=== PATIENT | female | born 1945 | race Caucasian/White ===

== ENCOUNTER 2017-01-07 20:03 | Inpatient (IN) | payer OTHER, MEDICAID ==
--- NOTE | 2017-01-07 21:05 | DR.GENAD ---
HPI - PCP Primary Care Physician: Yasmin - Complaint/Symptoms Chief Complaint Doctors Comments: Patient is being seen tonight because daughter states that mon has been sleeping most of the day. She saw her pcp today who said that she was very dehydrated. Daughter states that mom is seeing things that are not there. She was taken off her Ritalin a few days ago and can not stay awake. She denies a history of dementia. PMHx BP,cholesterol, anxiety and narcolepsy. She denies vomitng or diarrhea. Had fever today. Chief Complaint:: Daughter stated that "she carrried her to Dr. Hoffman 01/06/[address] said she was really drehydrated and her kidney function wasnt good. 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 Surgery, Ortho Surgery - Family History History of Family Medical Conditions: Yes Family Medical History: Cancer, [place] - Social History Do you use any recreational Drugs:: No - infectious screening Have you traveled outside the country in the last 6 months?: No ROS - Review of Systems Constitutional: No Symptoms Reported Eyes: No Symptoms Reported ENTM: No Symptoms Reported Respiratoy: No Symptoms Reported Cardiovascular: No Symptoms Reported Gastrointestinal/Abdominal: No Symptoms Reported Genitourinary: No Symptoms Reported Neurological: No Symptoms Reported Musculoskeletal: No Symptoms Reported Integumentary: No Symptoms Reported Hematologic/Lymphatic: No Symptoms Reported Endocrine: No Symptoms Reported Psychiatric: No Symptoms Reported All Other Systems: Reviewed and Negative PE - Vital Signs Vitals: Temperature 102.5 F Pulse Rate 74 Respiratory Rate 18 Blood Pressure [Right Arm] 144/64 Blood Pressure [Left Arm] 151/67 Blood Pressure 98/51 O2 Sat by Pulse Oximetry 97 - General Limitations: No Limitations General Appearance: Alert - Head Head Exam: Normal Inspection, Atraumatic - Eyes Eye exam: Normal Appearance, PERRL, EOMI - ENT ENT Exam: Normal Exam External Ear Exam: Normal External Inspection TM/Canal Exam: Bilateral Normal Nose Exam: Normal Nose Exam Mouth Exam: Normal Inspection Throat Exam: Normal Inspection - Neck Neck Exam: Normal Inspection, Full ROM - Chest Chest Inspection: Normal Inspection, Symmetric Chest Wall Rise - Respiratory Respiratory Exam: Normal Lung Sounds Bilat Respiratory Exam: Bilateral Clear to Auscultation - Cardiovascular Cardiovascular Exam: Regular Rate, Normal Rhythm - Abdominal Exam Abdominal Exam: Normal Inspection, Normal Bowel Sounds Abdominal Tenderness: negative: RUQ, RLQ, LUQ, LLQ, Epigastrium, Suprapubic, Diffuse, Mild, Moderate, Severe, Other - Extremities Extremities Exam: Normal Inspection - Back Back Exam: Normal Inspection - Neurologic Neurological Exam: Alert, Oriented X3, CN II-XII Intact - Skin Skin Exam: Warm, Dry, Intact Course - Reevaluation 1st: Unchanged ROR - Labs Reviewed Laboratory Results Reviewed?: Yes (increased BUN &Creatinine) Result Diagrams: 01/07/17 21:30 01/07/17 21:30 Laboratory: WBC 4.3 X10^3/uL (3.6-10.0) 01/07/17 21:30 RBC 3.48 X10^6/uL (3.5-5.4) L 01/07/17 21:30 Hgb 10.5 g/dL (12.0-16.0) L 01/07/17 21:30 Hct 31.4 % (36.0-47.0) L 01/07/17 21:30 MCV 90.0 fL (80.0-100.0) 01/07/17 21: MCH 30.0 pg (27.0-34.0) 01/07/17 21:30 MCHC 33.4 g/dL (33.0-35.0) 01/07/17 21:30 RDW 15.8 % (11.6-16.5) 01/07/17 21:30 Plt Count 75 X10^3/uL (150.0-450.0) L 01/07/17 21:30 MPV 10.2 fL (7.4-11.0) 01/07/17 21:30 Neut % 65.3 % (42.0-75.0) 01/07/17 21: Lymph % 23.3 % (21.0-51.0) 01/07/17 21:30 [place] % 10.9 % (0.0-13.0) 01/07/17 21:30 Eos % 0.0 % (0.9-2.9) L 01/07/17 21:30 Baso % 0.5 % (0.2-1.0) 01/07/17 21:30 Neut # 2.8 x10^3/uL (2.2-4.8) 01/07/17 21: Lymph # 1.0 X10^3/uL (1.3-2.9) L 01/07/17 21:30 [place] # 0.5 x10^3/uL (0.3-0.8) 01/07/17 21:30 Eos # 0.0 x10^3/uL (0.0-0.2) 01/07/17 21: Baso # 0.0 X10^3/uL (0.0-0.1) 01/07/17 21:30 Absolute Nucleated RBC 0.1 /100WBC 01/07/17 21:30 Sodium 134 mmol/L (136-145) L 01/07/17 21:30 Corrected Sodium 135 mmol/L (136-145) L 01/07/17 21:30 Potassium 4.7 mmol/L (3.5-5.1) 01/07/17 21:30 Chloride 99 mmol/L (98-107) 01/07/17 21:30 Carbon Dioxide 24.1 mmol/L (21-32) 01/07/17 21:30 BUN 66 mg/dL (7-18) H 01/07/17 21:30 Creatinine 3.44 mg/dL (0.55-1.02) H 01/07/17 21:30 Est GFR (MDRD) Af Amer 17 (>60) L 01/07/17 21:30 Est GFR (MDRD) Non-Af 14 (>60) L 01/07/17 21:30 Glucose 132 mg/dL (65-99) H 01/07/17 21:30 Calcium 7.9 mg/dL (8.5-10.1) L 01/07/17 21:30 Corrected Calcium 8.7 mg/dL (8.5-10.1) 01/07/17 21:30 Total Bilirubin 0.30 mg/dL (0.2-1.0) 01/07/17 21:30 AST 52 Units/L (15-37) H 01/07/17 21:30 ALT 21 Units/L (12-78) 01/07/17 21:30 Alkaline Phosphatase 70 Units/L (46-116) 01/07/17 21:30 Total Protein 7.0 g/dL (6.4-8.2) 01/07/17 21:30 Albumin 3.0 g/dL (3.4-5.0) L 01/07/17 21:30 Globulin 4.0 g/dL (2.5-4.5) 01/07/17 21:30 Albumin/Globulin Ratio 0.8 Ratio (1.1-2.1) L 01/07/17 21:30 - XRAY XRAY Interpreted by: Radiologist (Chest: Unchanged large hiatal hernia, no definite acute disease; CT Head: comparison with 07/15/14: There is an old left occipital infarct with concomitant ex vacuo dilatation of the adjacent lateral ventricle. There is also an old lacunar infarct of the left thalamus. No acute bleed,mass, mass effect, or abnormal extra axial collection is identified. There is generalized age apppropriate brain atrophy. No significant skeletal abnormality. There major paranasal sinuses and mastoid air cells are clear. Impression:No evidence for acute intracranial abnormality , Chronic findings as above including old infarcts of the left occipital lobe and left thalamus.) - Diagnosis Discharge Problem: old lacuna infarct Acute renal failure Qualifiers: Acute renal failure type: unspecified Qualified Code(s): N17.9 - Acute kidney failure, unspecified - Discharge Plan Condition: Stable - Follow ups/Referrals Follow ups/Referrals: JOSÉ HOFFMAN [Primary Care Provider] - 3 days - Instructions
[2017-01-07] MEDS: NS 1000 ML 1,000 ML IV SCH (21:35)
[2017-01-07 21:43] LABS: BASOPHILS % (AUTO) 0.5 % (0.2-1.0); HEMATOCRIT 31.4 % (36.0-47.0); HEMOGLOBIN 10.5 g/dL (12.0-16.0); LYMPHOCYTES % (AUTO) 23.3 % (21.0-51.0); MEAN CORPUSCULAR HGB CONC 33.4 g/dL (33.0-35.0); MEAN PLATELET VOLUME 10.2 fL (7.4-11.0); MONOCYTES # (AUTO) 0.5 x10^3/uL (0.3-0.8); MONOCYTES % (AUTO) 10.9 % (0.0-13.0); NEUTROPHILS # (AUTO) 2.8 x10^3/uL (2.2-4.8); NEUTROPHILS % (AUTO) 65.3 % (42.0-75.0); PLATELET COUNT 75 X10^3/uL (150.0-450.0); RED BLOOD COUNT 3.48 X10^6/uL (3.5-5.4); RED CELL DISTRIBUTION WIDTH 15.8 % (11.6-16.5); WHITE BLOOD COUNT 4.3 X10^3/uL (3.6-10.0)
[2017-01-07 21:54] LABS: CALCIUM 7.9 mg/dL (8.5-10.1); CARBON DIOXIDE 24.1 mmol/L (21-32); COR CA(FOR HYPOALB) 8.7 mg/dL (8.5-10.1); CREATININE 3.44 mg/dL (0.55-1.02)
[2017-01-08] MEDS ORDERED: ZOFRAN INJ 4 MG VIAL IVP PRN (00:23)
[2017-01-08 01:45] VITALS: BMI 23.0
[2017-01-08] MEDS: NS 1000 ML 1,000 ML IV SCH ×4 (05:34→16:13)
[2017-01-08 06:41] LABS: ALANINE AMINOTRANSFERASE 20 Units/L (12-78); ALBUMIN 2.7 g/dL (3.4-5.0); ALKALINE PHOSPHATASE 60 Units/L (46-116); ASPARTATE AMINO TRANSFERASE 50 Units/L (15-37); BLOOD UREA NITROGEN 61 mg/dL (7-18); CALCIUM 7.5 mg/dL (8.5-10.1); CARBON DIOXIDE 22.1 mmol/L (21-32); CHLORIDE 105 mmol/L (98-107); COR CA(FOR HYPOALB) 8.5 mg/dL (8.5-10.1); CREATININE 2.69 mg/dL (0.55-1.02); GLUCOSE 98 mg/dL (65-99); SODIUM 138 mmol/L (136-145); TOTAL PROTEIN 5.9 g/dL (6.4-8.2); eGFR BLACK RACES 22 (>60); eGFR NON BLACK RACES 18 (>60)
[2017-01-08] MEDS ORDERED: [UNRECOGNIZED DRUG - OTHER] PO SCH (09:00)
[2017-01-08] MEDS ORDERED: VALSARTAN PO SCH (09:00)
[2017-01-08] MEDS ORDERED: ATIVAN TAB 1 MG PO PRN ×2 (09:40→09:47)
[2017-01-08] MEDS ORDERED: TYGACIL 50 MG VIAL 100 MG in NS 100 ML IV 100 ML IV ONE (10:00)
[2017-01-08] MEDS: PLETAL PO SCH ×2 (10:40→20:27)
[2017-01-08] MEDS: CRESTOR TAB 10 MG PO SCH (10:41)
[2017-01-08] MEDS: PROTONIX TAB 40 MG PO SCH ×2 (10:42→20:26)
[2017-01-08] MEDS: DIOVAN TAB 160 MG PO SCH (10:42)
[2017-01-08 10:48] LABS: BILIRUBIN,URINE NEGATIVE (NEGATIVE); BLOOD/HEMOGLOBIN,URINE 2+ (NEGATIVE); GLUCOSE, URINE NEGATIVE (NEGATIVE); KETONES,URINE NEGATIVE (NEGATIVE); LEUKOCYTE ESTERASE ,URINE 2+ (NEGATIVE); NITRITES,URINE NEGATIVE (NEGATIVE); PROTEIN,URINE 2+ (NEGATIVE); UROBILINOGEN,URINE NORMAL (NORMAL)
[2017-01-08 11:00] LABS: AMORPHOUS SEDIMENT,UR 1+ /HPF (NEGATIVE); APPEARANCE,URINE SLIGHTLY HAZY (CLEAR); BACTERIA,URINE NEGATIVE /HPF (NEGATIVE); COLOR,URINE YELLOW (YELLOW); GRANULAR CASTS,URINE FEW /LPF (NEGATIVE); HYALINE CASTS, URINE FEW /LPF (NEGATIVE); SQUAMOUS EPITHELIAL CELL,UR FEW /HPF (NEGATIVE)
[2017-01-08] MEDS: PLAVIX PO SCH (11:15)
[2017-01-08] MEDS: ZYLOPRIM PO SCH (11:15)
[2017-01-08] MEDS: COREG TAB 12.5 MG PO SCH ×2 (11:15→20:29)
[2017-01-08] MEDS: SYNTHROID 88 mcg TAB PO SCH (11:15)
--- NOTE | 2017-01-08 20:24 | RAD ---
Acute abdominal series with single view chest Comparison: Chest x-ray 01/07/2017, abdominal series 07/16/2014 Indication: Abdominal pain, nausea and vomiting. Findings: No large hiatal hernia is unchanged. No focal infiltrates, large effusion, or pneumothorax identified. The bowel gas pattern is normal. No suspicious calcifications or free air identified. Impression: No acute abdominal or chest process. Large hiatal hernia. Reported By:
[2017-01-08] MEDS: TYGACIL 50 MG VIAL 50 MG in NS 100 ML IV 100 ML IV SCH (20:26)
[2017-01-08] MEDS: REQUIP PO SCH (20:29)
[2017-01-08] MEDS: SEROQUEL TAB 25 MG PO SCH (20:29)
[2017-01-08] MEDS ORDERED: [UNRECOGNIZED DRUG - OTHER] PO SCH (21:00)
[2017-01-08] MEDS ORDERED: PATIENT'S HOME MEDICATION RESPIRATORY (Ropinirole Hydrochloride [Ropinirole Hcl] 0.5 MG) PO SCH (21:00)
[2017-01-09] MEDS: NS 1000 ML 1,000 ML IV SCH ×5 (02:04→17:10)
[2017-01-09] MEDS ORDERED: BUTT CREAM (COMPOUND) TOP PRN (04:04)
[2017-01-09 06:22] LABS: ALBUMIN 2.1 g/dL (3.4-5.0); CALCIUM 7.1 mg/dL (8.5-10.1); CARBON DIOXIDE 18.9 mmol/L (21-32); COR CA(FOR HYPOALB) 8.6 mg/dL (8.5-10.1); CREATININE 1.4 mg/dL (0.55-1.02); TOTAL PROTEIN 5.6 g/dL (6.4-8.2)
[2017-01-09 06:30] LABS: BASOPHILS % (AUTO) 0.2 % (0.2-1.0); EOSINOPHILS % (AUTO) 0.1 % (0.9-2.9); HEMATOCRIT 29.9 % (36.0-47.0); HEMOGLOBIN 9.9 g/dL (12.0-16.0); LYMPHOCYTES # (AUTO) 1.3 X10^3/uL (1.3-2.9); LYMPHOCYTES % (AUTO) 26.1 % (21.0-51.0); MEAN CORPUSCULAR HEMOGLOBIN 30.6 pg (27.0-34.0); MEAN CORPUSCULAR HGB CONC 33.1 g/dL (33.0-35.0); MEAN CORPUSCULAR VOLUME 92.4 fL (80.0-100.0); MEAN PLATELET VOLUME 10.6 fL (7.4-11.0); MONOCYTES # (AUTO) 0.5 x10^3/uL (0.3-0.8); MONOCYTES % (AUTO) 10.6 % (0.0-13.0); NEUTROPHILS # (AUTO) 3.2 x10^3/uL (2.2-4.8); PLATELET COUNT 85 X10^3/uL (150.0-450.0); RED BLOOD COUNT 3.23 X10^6/uL (3.5-5.4); RED CELL DISTRIBUTION WIDTH 15.4 % (11.6-16.5); WHITE BLOOD COUNT 5.1 X10^3/uL (3.6-10.0)
[2017-01-09] MEDS: TYGACIL 50 MG VIAL 50 MG in NS 100 ML IV 100 ML IV SCH ×2 (09:17→20:25)
[2017-01-09] MEDS: SYNTHROID 88 mcg TAB PO SCH (09:17)
[2017-01-09] MEDS: PROTONIX TAB 40 MG PO SCH ×2 (09:18→20:26)
[2017-01-09] MEDS: ZYLOPRIM PO SCH (09:18)
[2017-01-09] MEDS: DIOVAN TAB 160 MG PO SCH (09:18)
[2017-01-09] MEDS: COREG TAB 12.5 MG PO SCH ×2 (09:18→20:26)
[2017-01-09] MEDS: CRESTOR TAB 10 MG PO SCH (09:18)
[2017-01-09] MEDS: PLETAL PO SCH ×2 (10:27→20:26)
[2017-01-09] MEDS: PLAVIX PO SCH (10:27)
[2017-01-09] MEDS: VSL#3 PO SCH (13:40)
[2017-01-09] MEDS: REQUIP PO SCH (20:25)
[2017-01-09] MEDS: SEROQUEL TAB 25 MG PO SCH (20:26)
[2017-01-10] MEDS ORDERED: LASIX IVP ONE ×2 (00:37→08:59)
[2017-01-10] MEDS ORDERED: NS 1000 ML 1,000 ML IV SCH (01:00)
--- NOTE | 2017-01-10 01:16 | RAD ---
Chest, two views Indication: Respiratory distress, shortness of breath Comparison: 01/07/2017 Findings: Mild cardiac silhouette enlargement is unchanged. There are interstitial changes of the deric ngs, without overt edema, focal infiltrate, or pleural effusion. Large hiatal hernia is again noted. Impression: No acute cardiopulmonary disease or significant change from prior. Large hiatal hernia. Reported By:
[2017-01-10 04:57] LABS: BASOPHILS % (AUTO) 0.3 % (0.2-1.0); HEMATOCRIT 33.1 % (36.0-47.0); LYMPHOCYTES # (AUTO) 1.2 X10^3/uL (1.3-2.9); LYMPHOCYTES % (AUTO) 12.1 % (21.0-51.0); MEAN CORPUSCULAR HEMOGLOBIN 30.6 pg (27.0-34.0); MEAN CORPUSCULAR HGB CONC 33.3 g/dL (33.0-35.0); MEAN CORPUSCULAR VOLUME 91.6 fL (80.0-100.0); MONOCYTES # (AUTO) 0.7 x10^3/uL (0.3-0.8); MONOCYTES % (AUTO) 6.5 % (0.0-13.0); NEUTROPHILS # (AUTO) 8.3 x10^3/uL (2.2-4.8); NEUTROPHILS % (AUTO) 81.1 % (42.0-75.0); PLATELET COUNT 129 X10^3/uL (150.0-450.0); RED BLOOD COUNT 3.61 X10^6/uL (3.5-5.4); RED CELL DISTRIBUTION WIDTH 16.1 % (11.6-16.5); WHITE BLOOD COUNT 10.3 X10^3/uL (3.6-10.0)
[2017-01-10 05:05] LABS: ALBUMIN 2.3 g/dL (3.4-5.0); CALCIUM 7.2 mg/dL (8.5-10.1); CARBON DIOXIDE 20.1 mmol/L (21-32); COR CA(FOR HYPOALB) 8.6 mg/dL (8.5-10.1); CREATININE 1.32 mg/dL (0.55-1.02); TOTAL PROTEIN 6.1 g/dL (6.4-8.2)
[2017-01-10] MEDS: VSL#3 PO SCH (09:33)
[2017-01-10] MEDS: PLETAL PO SCH (09:33)
[2017-01-10] MEDS: PROTONIX TAB 40 MG PO SCH (09:34)
[2017-01-10] MEDS: COREG TAB 12.5 MG PO SCH (09:35)
[2017-01-10] MEDS: SYNTHROID 88 mcg TAB PO SCH (09:35)
[2017-01-10] MEDS: CRESTOR TAB 10 MG PO SCH (09:35)
[2017-01-10] MEDS: ZYLOPRIM PO SCH (09:35)
[2017-01-10] MEDS: DIOVAN TAB 160 MG PO SCH (09:35)
[2017-01-10] MEDS: PLAVIX PO SCH (09:36)
[2017-01-10] MEDS: TYGACIL 50 MG VIAL 50 MG in NS 100 ML IV 100 ML IV SCH ×2 (09:36→09:45)
[2017-01-10 13:45] VITALS: BP 129/63
== END 2017-01-10 11:55 | disposition home or self-care (01) | DRG 683 ==
LOC: ER 20:06 → MED/SURG 01-08 00:09
PROVIDERS: ADMIT Obstetrics & Gynecology Obstetrics; ATTEND Obstetrics & Gynecology Obstetrics
DX: N17.8 Other acute kidney failure (principal); E86.0 Dehydration; N39.0 Urinary tract infection, site not specified; B96.29 Other Escherichia coli [E. coli] as the cause of diseases classified elsewhere; R53.1 Weakness; E78.2 Mixed hyperlipidemia; E03.8 Other specified hypothyroidism; G25.81 Restless legs syndrome; K21.9 Gastro-esophageal reflux disease without esophagitis; F41.8 Other specified anxiety disorders; I25.10 Atherosclerotic heart disease of native coronary artery without angina pectoris; I50.9 Heart failure, unspecified; R26.89 Other abnormalities of gait and mobility; R06.09 Other forms of dyspnea; R06.02 Shortness of breath; R13.11 Dysphagia, oral phase
CPT/HCPCS: 36415; 70450; 71010; 71020; 74022; 80053; 81001; 85025; 87086; 87088; 87186; 87493; 94760; 96365; 99284; A4216; A4222; J1940

== ENCOUNTER 2017-03-19 14:43 | Observation (INO) | payer OTHER, MEDICAID ==
--- NOTE | 2017-03-19 14:52 | DR.GENAD ---
HPI - HPI Comment HPI Comment: LEFT FOREARM AND LEFT PERIORBITAL HEMATOMA PRESENT. ABRSION OVER LEFT KNEE. ADNITS TO HEADACHE AND CHEST SORENESS. NO DIZZINESS OR NECK PAIN. - Complaint/Symptoms Chief Complaint Doctors Comments: PATIENT FELL OVER HER SLIPPERS AT HOME SUSTAINING INJURY TO LT FACE, LT FOREARM AND LEFT KNEE. 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 negative: Blurred Vision, Discharge, Photophobia ENTM: No Symptoms Reported. negative: Ear Pain, Nose Discharge, Nose Congestion , Throat Pain Respiratoy: Short of Breath. negative: Productive Cough, Wheezing, Hemoptysis Cardiovascular: Chest Pain. negative: Edema, Palpitations, Syncope Gastrointestinal/Abdominal: No Symptoms Reported. negative: Abdominal Pain, Diarrhea, Nausea, Vomiting Genitourinary: negative: Dysuria, Hematuria Neurological: Headache, Weakness, Problems Walking Musculoskeletal: Muscle Pain, Left, Elbow, Forearm, Knee Integumentary: Change in Color, Wound (ABRASION LT KNEE.), Bruises Hematologic/Lymphatic: Easy Bruising Endocrine: negative: Flushing All Other Systems: Reviewed and Negative PE - Vital Signs Vitals: Temperature 98.4 F Pulse Rate 78 Respiratory Rate 18 Blood Pressure [Right Arm] 138/61 Blood Pressure [Left Arm] 129/63 Blood Pressure 140/63 O2 Sat by Pulse Oximetry 94 - General Limitations: No Limitations General Appearance: Alert - Head Head Exam: Other (PERIORBITAL HEMATOMA LT, FACIAL CONTUSION AND ABRASION) - Eyes Eye exam: PERRL, Periorbital Swelling (LT ), Periorbital Tenderness (LT). negative: Scleral Icterus, Conjunctival Injection - ENT ENT Exam: Normal Oropharynx, Normal External Ear Exam, TM's Normal Bilaterally External Ear Exam: Normal External Inspection TM/Canal Exam: Bilateral Normal Nose Exam: Normal Nose Exam Mouth Exam: Normal Inspection Throat Exam: Normal Inspection - Neck Neck Exam: Trachea Midline - Chest Chest Inspection: Symmetric Chest Wall Rise - Respiratory Respiratory Exam: Normal Lung Sounds Bilat Respiratory Exam: Bilateral Clear to Auscultation - Cardiovascular Cardiovascular Exam: Regular Rate, Normal Rhythm, Normal Heart Sounds - Abdominal Exam Abdominal Exam: Normal Bowel Sounds, Soft. negative: Tenderness - Extremities Extremities Exam: Tenderness (LT KNEE, LT FOREARM HEMATOMA,), Joint Swelling ( LT KNEE) - Back Back Exam: Normal Inspection - Neurologic Neurological Exam: Alert, Other (DECREASE HEARING). negative: Oriented X3 ( ORIENTED TIMES 2) - Psychiatric Psychiatric Exam: Normal Affect - Skin Skin Exam: Erythema MDM - Additional Information Additional Information Obtained From: Family - Differential Diagnosis Differential Diagnosis: MULTIPLE CONTUSIONS AND ABRSIONS, HEMATOMA LT FOREARM, PERIORBITAL AREA. Course - Treatment Treatment: SEE ORDERS. - Consultation Consultation Comments: DISCUSS PATIENT WITH DR. JOSEPH. HE WILL ADMIT PATIENT. - Education/Counseling Education/Counseling: Patient, Family, Education Educated On: Diagnosis ROR - Labs Reviewed Laboratory Results Reviewed?: Yes Result Diagrams: 03/19/17 15:17 03/19/17 15:17 Laboratory: WBC 4.9 X10^3/uL (3.6-10.0) 03/19/17 15:17 RBC 3.15 X10^6/uL (3.5-5.4) L 03/19/17 15:17 Hgb 9.8 g/dL (12.0-16.0) L 03/19/17 15:17 Hct 29.0 % (36.0-47.0) L 03/19/17 15:17 MCV 91.8 fL (80.0-100.0) 03/19/17 15:17 MCH 31.2 pg (27.0-34.0) 03/19/17 15:17 MCHC 33.9 g/dL (33.0-35.0) 03/19/17 15:17 RDW 14.8 % (11.6-16.5) 03/19/17 15:17 Plt Count 123 X10^3/uL (150.0-450.0) L 03/19/17 15:17 MPV 9.2 fL (7.4-11.0) 03/19/17 15:17 Neut % 59.5 % (42.0-75.0) 03/19/17 15:17 Lymph % 28.1 % (21.0-51.0) 03/19/17 15:17 [place] % 11.1 % (0.0-13.0) 03/19/17 15:17 Eos % 0.8 % (0.9-2.9) L 03/19/17 15:17 Baso % 0.5 % (0.2-1.0) 03/19/17 15:17 Neut # 2.9 x10^3/uL (2.2-4.8) 03/19/17 15:17 Lymph # 1.4 X10^3/uL (1.3-2.9) 03/19/17 15:17 [place] # 0.5 x10^3/uL (0.3-0.8) 03/19/17 15:17 Eos # 0.0 x10^3/uL (0.0-0.2) 03/19/17 15:17 Baso # 0.0 X10^3/uL (0.0-0.1) 03/19/17 15:17 Absolute Nucleated RBC 0.0 /100WBC 03/19/17 15:17 INR Target Range - 03/19/17 15:17 INR 1.05 (0.8-1.3) 03/19/17 15:17 PTT 29.8 SECONDS (22.9-36.5) 03/19/17 15:17 PTT Comment - 03/19/17 15:17 Sodium 138 mmol/L (136-145) 03/19/17 15:17 Corrected Sodium 138 mmol/L (136-145) 03/19/17 15:17 Potassium 4.1 mmol/L (3.5-5.1) 03/19/17 15:17 Chloride 103 mmol/L (98-107) 03/19/17 15:17 Carbon Dioxide 24.7 mmol/L (21-32) 03/19/17 15:17 BUN 24 mg/dL (7-18) H 03/19/17 15:17 Creatinine 2.12 mg/dL (0.55-1.02) H 03/19/17 15:17 Est GFR (MDRD) Af Amer 29 (>60) L 03/19/17 15:17 Est GFR (MDRD) Non-Af 24 (>60) L 03/19/17 15:17 Glucose 114 mg/dL (65-99) H 03/19/17 15:17 Calcium 7.8 mg/dL (8.5-10.1) L 03/19/17 15:17 Corrected Calcium 8.6 mg/dL (8.5-10.1) 03/19/17 15:17 Total Bilirubin 0.40 mg/dL (0.2-1.0) 03/19/17 15:17 AST 18 Units/L (15-37) 03/19/17 15:17 ALT 16 Units/L (12-78) 03/19/17 15:17 Alkaline Phosphatase 62 Units/L (46-116) 03/19/17 15:17 Creatine Kinase 96 Units/L (26-192) 03/19/17 15:17 CK-MB (CK-2) 1.4 ng/mL (0-4.0) 03/19/17 15:17 CK/CKMB % Calc 1.5 % (<4) 03/19/17 15:17 Troponin I 0.10 ng/mL (0-1.5) 03/19/17 15:17 Total Protein 6.2 g/dL (6.4-8.2) L 03/19/17 15:17 Albumin 3.0 g/dL (3.4-5.0) L 03/19/17 15:17 Globulin 3.2 g/dL (2.5-4.5) 03/19/17 15:17 Albumin/Globulin Ratio 0.9 Ratio (1.1-2.1) L 03/19/17 15:17 - XRAY XRAY Interpreted by: Radiologist XRAY Findings: REPORT DISCUSS WITH PATIENT AND FAMILY - EKG Rhythm: NSR (EKG NOTED) - Diagnosis Discharge Problem: Mental status alteration, Multiple contusions, Multiple abrasions, Left knee sprain, Periorbital hematoma of left eye, Traumatic hematoma of left forearm, Dehydration - Discharge Plan Disposition: ADMITTED INPATIENT Condition: Stable - Follow ups/Referrals - Instructions
[2017-03-19 14:59] VITALS: BMI 23.0
[2017-03-19 15:32] LABS: BASOPHILS % (AUTO) 0.5 % (0.2-1.0); EOSINOPHILS % (AUTO) 0.8 % (0.9-2.9); HEMOGLOBIN 9.8 g/dL (12.0-16.0); LYMPHOCYTES # (AUTO) 1.4 X10^3/uL (1.3-2.9); LYMPHOCYTES % (AUTO) 28.1 % (21.0-51.0); MEAN CORPUSCULAR HEMOGLOBIN 31.2 pg (27.0-34.0); MEAN CORPUSCULAR HGB CONC 33.9 g/dL (33.0-35.0); MEAN CORPUSCULAR VOLUME 91.8 fL (80.0-100.0); MEAN PLATELET VOLUME 9.2 fL (7.4-11.0); MONOCYTES # (AUTO) 0.5 x10^3/uL (0.3-0.8); MONOCYTES % (AUTO) 11.1 % (0.0-13.0); NEUTROPHILS # (AUTO) 2.9 x10^3/uL (2.2-4.8); NEUTROPHILS % (AUTO) 59.5 % (42.0-75.0); PLATELET COUNT 123 X10^3/uL (150.0-450.0); RED BLOOD COUNT 3.15 X10^6/uL (3.5-5.4); RED CELL DISTRIBUTION WIDTH 14.8 % (11.6-16.5); WHITE BLOOD COUNT 4.9 X10^3/uL (3.6-10.0)
[2017-03-19 15:52] LABS: CALCIUM 7.8 mg/dL (8.5-10.1); CARBON DIOXIDE 24.7 mmol/L (21-32); CREATININE 2.12 mg/dL (0.55-1.02); TROPONIN I 0.1 ng/mL (0-1.5)
[2017-03-19 15:56] LABS: CKMB % 1.5 % (<4); COR CA(FOR HYPOALB) 8.6 mg/dL (8.5-10.1); CREATINE KINASE MB 1.4 ng/mL (0-4.0); TOTAL PROTEIN 6.2 g/dL (6.4-8.2)
--- NOTE | 2017-03-19 16:22 | CT ---
HEAD CT WITHOUT IV CONTRAST CERVICAL SPINE CT WITHOUT IV CONTRAST CT FACE WITHOUT IV CONTRAST CLINICAL INDICATION: Fall with left orbital swelling. TECHNIQUE: Axial CT images from skull base to vertex without IV contrast. Multiple-row detector fredi tarah CT examination of the facial bones and mandible without IV contrast. Axial, sagittal, and coron al reconstructed images. Dose reduction techniques including Automated Exposure Control (AEC) and ad justment of mA and kV were utlized. COMPARISON: CT head 01/07/2017 FINDINGS: Head CT: Diffuse patchy and confluent white matter hypoattenuation with associated volume loss . Old left occ ipital infarct. There is no evidence of acute infarction, intracranial hemorrhage, mass or mass effe ct, or abnormal extra-axial collection. Age-related, ex-vacuo dilatation of the ventricles and sulci . The ventricles are normal in size, shape and position. 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 Specifically, there is no evidence of fracture or dislo cation, and no evidence of aggressive osseous lesions. Extremely poor dentition with multiple dental caries. The globes are normal in size, contour, and position. The extraocular muscles, intraconal fat, and extraconal fat are within normal limits. Left sided periorbital soft tissue hematoma. The orbital sandoval and optic canals are normal. The visualized paranasal sinuses and tympanomastoid cavit ies are unopacified. IMPRESSION: 1. No acute intracranial abnormality. 2. Left-sided periorbital soft tissue hematoma without underlying bony injury. 3. Chronic findings as above. Reported By:
--- NOTE | 2017-03-19 17:45 | RAD ---
HISTORY: Pain. Patient fell over her slippers and fell onto left side of the body. Patient injured left elbow. Patient is taking Plavix. Study: Three-view left elbow Comparison: No priors Findings: There is marked posterior and lateral soft tissue swelling of the proximal forearm region. No fractu re, dislocation joint effusion is seen. IMPRESSION: Soft tissue swelling without fracture. Reported By:
--- NOTE | 2017-03-19 17:51 | RAD ---
HISTORY: Fall with knee pain Study: 3 views of the left knee Comparison: None Findings: No true lateral view was obtained. Joint spaces are maintained. No knee joint effusion. Soft tissue swelling over the patella. IMPRESSION: 1. Examination limited by a lack of a true lateral view. Soft tissue swelling anterior to the bello la without definite underlying bony injury. Reported By:
--- NOTE | 2017-03-19 17:53 | RAD ---
HISTORY: Fall with chest pain Study: Single view of the chest. Comparison: 01/10/2017 Findings: Enlarged cardiac silhouette secondary to hiatal hernia. No focal consolidations, pleural effusions o r pneumothorax. Osseous structures demonstrate no acute abnormality. IMPRESSION: 1. No acute cardiopulmonary process. Reported By:
[2017-03-19] MEDS ORDERED: NS 1000 ML 1,000 ML IV SCH (18:00)
[2017-03-19] MEDS ORDERED: NS 1000 ML 1,000 ML ONE (19:24)
[2017-03-19 21:44] LABS: CKMB % 1.2 % (<4); CREATINE KINASE MB 1.6 ng/mL (0-4.0); TROPONIN I 0.11 ng/mL (0-1.5)
[2017-03-20 03:59] LABS: ALBUMIN 2.5 g/dL (3.4-5.0); CALCIUM 7.7 mg/dL (8.5-10.1); CKMB % 1.8 % (<4); COR CA(FOR HYPOALB) 8.9 mg/dL (8.5-10.1); CREATININE 1.88 mg/dL (0.55-1.02); TOTAL PROTEIN 5.8 g/dL (6.4-8.2); TROPONIN I 0.11 ng/mL (0-1.5)
[2017-03-20 04:01] LABS: EOSINOPHILS # (AUTO) 0.1 x10^3/uL (0.0-0.2); LYMPHOCYTES # (AUTO) 2.4 X10^3/uL (1.3-2.9); MEAN PLATELET VOLUME 9.9 fL (7.4-11.0); MONOCYTES # (AUTO) 0.8 x10^3/uL (0.3-0.8); WHITE BLOOD COUNT 6.6 X10^3/uL (3.6-10.0)
[2017-03-20 04:05] LABS: BASOPHILS % (AUTO) 0.7 % (0.2-1.0); EOSINOPHILS % (AUTO) 2.2 % (0.9-2.9); HEMATOCRIT 26.9 % (36.0-47.0); HEMOGLOBIN 9.2 g/dL (12.0-16.0); LYMPHOCYTES % (AUTO) 36.8 % (21.0-51.0); MEAN CORPUSCULAR HEMOGLOBIN 31.6 pg (27.0-34.0); MEAN CORPUSCULAR HGB CONC 34.3 g/dL (33.0-35.0); MEAN CORPUSCULAR VOLUME 92.1 fL (80.0-100.0); MONOCYTES % (AUTO) 11.8 % (0.0-13.0); NEUTROPHILS # (AUTO) 3.2 x10^3/uL (2.2-4.8); NEUTROPHILS % (AUTO) 48.5 % (42.0-75.0); PLATELET COUNT 119 X10^3/uL (150.0-450.0); RED BLOOD COUNT 2.92 X10^6/uL (3.5-5.4); RED CELL DISTRIBUTION WIDTH 14.6 % (11.6-16.5)
[2017-03-20 04:24] LABS: PLATELET MORPHOLOGY COMMENT NORMAL (NORMAL)
[2017-03-20] MEDS ORDERED: ALBUMIN HUMAN 25%- 100ML 100 ML IV ONE (09:41)
[2017-03-20 10:44] VITALS: BP 150/65
--- NOTE | 2017-03-20 21:29 | DR.CARTERS ---
Short Stay Summary - Short Stay Summary for: Short Stay Summary for Date of:: 03/20/17 - Admission Date Date of Admission: 03/19/17 - Discharge Date Discharge Date: 03/20/17 - Admission Diagnoses (1) Acute renal failure Status: Acute (2) Dehydration Status: Acute (3) Multiple abrasions Status: Acute (4) Multiple contusions Status: Acute (5) Periorbital hematoma of left eye Status: Acute (6) Traumatic hematoma of left forearm Status: Acute - Hospital Course Hospital Course: Patient is a 71yo female who presented to the emergency room with complaints of fall at home where she tripped of her slippers. She has a hematoma to her left forearm and left periorbital. Abrasion on the left knee. She complains of headache and chest soreness. Vital signs on arrival 98.4, 78, 18, 94%, 140/63. Labs within normal limits with the exception of RBC 3.15, Hgb 9.8, Hct 29.0, Plt count 123, Eos% 0.8, BUN 24, Creatinine 2.12, Est GFR 24, Glcuose 114, Calcium 7.8, total protein 6.2, albumin 3.0, albumin/globulin ratio 0.9. Chest xray shoed no acute cardiopulmonary process. Elbow xray shows soft tissue swelling without fracture. Facial bone CT shows no acute intracranial abnormality, left sided periorbital soft tissue hematoma without underlying bony injury. Knee xray shows soft tissue swelling anterior to the patella without definite underlying bony injury. EKG shows sinus rhythm with rate of 67. Patient admitted with diagnosis of Dehydration, multiple contusions, abrasions and started on NS@80. Upon rounds patient states she is feeling fine that she just wanted to get checked out after the fall. Patient is noted to have a large hematoma to left periorbital area. Vital signs this am 98.4, 68, 20 , 97%, 150/65. Labs are within normal limits with the exception of RBC 2.92, Hgb 9.2, Hct 26.9, Plt count 119 decreased A, Chloride 109, BUN 25, Creatinine 1.88, Est GFR 28, Glucose 28, Calcium 7.7, Total protein 5.8, Albumin 2.5, Albumin/globulin 0.8. We are going to give her one dose of IV Albumin and then We are going to discharge patient in table condition to follow up with her primary care provider. She I to continue her home medication. - Discharge Medications Discharge Medications: Home medication: [id number] PO DAIly, Tramadol 50mg q6hr prn, Januvia 100mg daily, crestor 20mg daily, ropinirole 0.5mg at bedtime, quetiapine fumarate 50mg at bedtime, pioglitazone 15mg daily, protonix 40mg BID, metoclopramide 10mg BID, Lorazepam 1mg TID PRN, Imodium 2mg q4hr PRN, synthroid 88mcg daily, Lasix 40mg daily, zetia 10mg at bedtime, Plavix 75mg daily, pletal 100mg BID, coreg 12.5mg BID, allorpurinol 100mg daily, Ventolin 1puff TID - Discharge Plan Disposition: 01 HOME, SELF-CARE Condition: Stable - Follow up/Referrals Follow up/Referrals: Kj HONG [STAFF PHYSICIAN] - 3 days Brianna Olson [Nurse Practitioner] - 1 WEEK - Instructions Instructions: Dehydration, Adult, [id number]
== END 2017-03-20 10:30 | disposition home or self-care (01) ==
LOC: ER 14:43 → MED/SURG 17:09
PROVIDERS: ADMIT Internal Medicine; ATTEND Internal Medicine
DX: N17.8 Other acute kidney failure (principal); E86.0 Dehydration; R41.82 Altered mental status, unspecified; R51 Headache; R07.89 Other chest pain; S50.812A Abrasion of left forearm, initial encounter; S00.212A Abrasion of left eyelid and periocular area, initial encounter; S80.212A Abrasion, left knee, initial encounter; W01.0XXA Fall on same level from slipping, tripping and stumbling without subsequent striking against object, initial encounter; Y92.098 Other place in other non-institutional residence as the place of occurrence of the external cause; E03.8 Other specified hypothyroidism; I10 Essential (primary) hypertension; I25.10 Atherosclerotic heart disease of native coronary artery without angina pectoris; M13.89 Other specified arthritis, multiple sites; F32.89 Other specified depressive episodes; R53.1 Weakness; R06.02 Shortness of breath; R94.31 Abnormal electrocardiogram [ECG] [EKG]
CPT/HCPCS: 36415; 70450; 70486; 71010; 73070; 73564; 80053; 82550; 82553; 84484; 85025; 85610; 85730; 93005; 94760; 96365; 96367; 99284; A4222; G0378

== ENCOUNTER 2019-01-27 11:00 | Inpatient (IN) ==
[~2019-01-27 11:00] MED LIST: DUONEB 0.5 MG/3 MG ONE
[2019-01-27] MEDS ORDERED: LASIX IVP STA (11:12)
[2019-01-27] MEDS ORDERED: DUONEB 0.5 MG/3 MG NEB ONE (11:13)
[2019-01-27] MEDS ORDERED: SOLU-Medrol 125 MG VIAL IVP ONE (11:13)
--- NOTE | 2019-01-27 11:16 | DR.GENAD ---
HPI - Complaint/Symptoms Chief Complaint Doctors Comments: Family states patient was having problems breathing yesterday but did not tell anyone until today she woke up with problems catching her breath with wheezing, SOB and feeling like something was stuck in back of her throat as related by family members. Patient states she has nebulizers at home that she took yesterday but do not have home oxygen. She is a patient of Dr. Malave and denies cold, cough, swelling of feet or legs. Patient with oxygen saturation 83% on arrival to the emergency room and came up with mask - Nurses notes reviewed Nurses Notes Review: Yes - Source History Provided: Patient, Family Member - Mode of Arrival Mode of Arrival: Ambulatory - Timing Came on: Suddenly - Duration Duration: Constant Duration: Hours - Location Location: SOB, wheezing - Severity Severity: Moderate - Modifying Factors Worsens:: nothing Improves:: nothing PMH - PMH Past Medical History: Anemia, Angina, Arthritis, Coronary Artery Disease, CVA, Depression, Gout, Hypertension, Hypothyroidism, [place], Renal Disease Past Surgical History: Yes Surgical History: Angioplasty/Stents, Hysterectomy - Family History Family Medical History: Cancer, [place], Coronary Artery Disease - Social History Do you use any recreational Drugs:: No ROS - Review of Systems Constitutional: No Symptoms Reported, Weakness Eyes: No Symptoms Reported ENTM: No Symptoms Reported Respiratoy: No Symptoms Reported, Short of Breath, Wheezing Cardiovascular: No Symptoms Reported. negative: See HPI, Chest Pain, Edema, Palpitations, Syncope, Cyanosis, Skin Mottling, Other Gastrointestinal/Abdominal: No Symptoms Reported Genitourinary: No Symptoms Reported. negative: See HPI, Discharge, Dysuria, Frequency, Hematuria, Pain, Bleeding, Other Neurological: No Symptoms Reported Musculoskeletal: No Symptoms Reported Integumentary: No Symptoms Reported Hematologic/Lymphatic: No Symptoms Reported Endocrine: No Symptoms Reported Psychiatric: No Symptoms Reported. negative: See HPI, Anxiety, Depression, Hallucinations, Excessive crying, Suicidal, Other PE - General Limitations: No Limitations General Appearance: Alert, In Distress (moderate) - Head Head Exam: Normal Inspection, Atraumatic, Normocephalic - Eyes Eye exam: Normal Appearance, PERRL, EOMI. negative: Scleral Icterus, Conjunctival Injection, Nystagmus, Miosis, Mydrasis, Periorbital Swelling, Periorbital Tenderness, Other - ENT ENT Exam: Normal Exam, Normal Oropharynx, Normal External Ear Exam, Mucous Membranes Moist, TM's Normal Bilaterally (multiple dental caries) External Ear Exam: Normal External Inspection TM/Canal Exam: Bilateral Normal Nose Exam: Normal Nose Exam Mouth Exam: Normal Inspection. negative: Drooling, Trismus, Lip Swelling, Tongue Elevation, Tongue Swelling, Laceration, Other Throat Exam: Normal Inspection - Neck Neck Exam: Normal Inspection, Full ROM, Trachea Midline. negative: Tenderness, Meningismus, Lymphadenopathy, Thyromegaly, Other - Chest Chest Inspection: Normal Inspection, Symmetric Chest Wall Rise - Respiratory Respiratory Exam: Normal Lung Sounds Bilat, Prolonged Expiratory Phase Respiratory Exam: Bilateral Wheezing, Bilateral Rhonchi, Bilateral Decreased Breath Sounds, Left Rales, Lower Rales - Cardiovascular Cardiovascular Exam: Regular Rate, Normal Rhythm, Normal Heart Sounds, Systolic Murmur - Abdominal Exam Abdominal Exam: Normal Inspection, Normal Bowel Sounds, Soft Abdominal Tenderness: negative: RUQ, RLQ, LUQ, LLQ, Epigastrium, Suprapubic, Diffuse, Mild, Moderate, Severe, Other - Extremities Extremities Exam: Normal Inspection, Full ROM, Normal Capillary Refill. negative: Tenderness, Edema, Joint Swelling, Calf Tenderness, Other - Back Back Exam: Normal Inspection, Full ROM. negative: Tenderness, (R) CVA Tenderness, (L) CVA Tenderness, Muscle Spasm, Paraspinal Tenderness, Vertebral Tenderness, Rashes, (R) Sciatic Notch Tenderness, (L) Sciatic Notch Tendern, (R) Straight Leg Raise, (L) Straight Leg Raise, Other - Neurologic Neurological Exam: Alert, Oriented X3, CN II-XII Intact, Reflexes Normal. negative: Normal Gait (gait not tested) - Psychiatric Psychiatric Exam: Normal Affect, Normal Mood - Skin Skin Exam: Warm, Dry, Intact, Normal Color - Vital Signs Vitals: Temperature 98.0 F Pulse Rate 68 Respiratory Rate 21 Blood Pressure [Right Arm] 150/65 Blood Pressure [Left Arm] 129/63 Blood Pressure 174/69 O2 Sat by Pulse Oximetry 96 Course - Reevaluation 1st: Improved - Consultation Called: 12:56 Call Returned: 12:56 (Dr. Manning to admit) - Education/Counseling Education/Counseling: Patient, Family Educated On: Treatment, Diagnosis, Prognosis, Needs for Follow Up ROR - Labs Reviewed Laboratory Results Reviewed?: Yes (All the labs and x-ray results reviewed and discussed with patient) Result Diagrams: 01/27/19 11:16 01/27/19 11:16 - XRAY XRAY Interpreted by: Radiologist (CXR: Bilateral perihilar andupper lobe infiltrates consistent with pneumonia.) - EKG Rate: 105 Rhythm: ST Block: LBBB ST: Nonsp - Labs Reviewed Laboratory: WBC 12.5 X10^3/uL (3.6-10.0) H 01/27/19 11:16 RBC 3.99 X10^6/uL (3.5-5.4) 01/27/19 11:16 Hgb 12.3 g/dL (12.0-16.0) 01/27/19 11:16 Hct 37.7 % (36.0-47.0) 01/27/19 11:16 MCV 94.4 fL (80.0-100.0) 01/27/19 11:16 MCH 31.0 pg (27.0-34.0) 01/27/19 11:16 MCHC 32.8 g/dL (33.0-35.0) L 01/27/19 11:16 RDW 15.2 % (11.6-16.5) 01/27/19 11:16 Plt Count 137 X10^3/uL (150.0-450.0) L 01/27/19 11:16 MPV 9.1 fL (7.4-11.0) 01/27/19 11:16 Neut % (Auto) 80.0 % (42.0-75.0) H 01/27/19 11:16 Lymph % (Auto) 14.9 % (21.0-51.0) L 01/27/19 11:16 [place] % (Auto) 3.0 % (0.0-13.0) 01/27/19 11:16 Eos % (Auto) 1.4 % (0.9-2.9) 01/27/19 11:16 Baso % (Auto) 0.7 % (0.2-1.0) 01/27/19 11:16 Neut # (Auto) 10.0 x10^3/uL (2.2-4.8) H 01/27/19 11:16 Lymph # (Auto) 1.9 X10^3/uL (1.3-2.9) 01/27/19 11:16 [place] # (Auto) 0.4 x10^3/uL (0.3-0.8) 01/27/19 11:16 Eos # (Auto) 0.2 x10^3/uL (0.0-0.2) 01/27/19 11:16 Baso # (Auto) 0.1 X10^3/uL (0.0-0.1) 01/27/19 11:16 Absolute Nucleated RBC 0.1 /100WBC 01/27/19 11:16 INR Target Range - 01/27/19 11:16 INR 0.97 (0.8-1.3) 01/27/19 11:16 APTT 24.4 SECONDS (22.9-36.5) 01/27/19 11:16 PTT Comment - 01/27/19 11:16 D-Dimer 1570 ng/mL (0-400) H* 01/27/19 11:16 Sodium 140 mmol/L (136-145) 01/27/19 11:16 Corrected Sodium 142 mmol/L (136-145) 01/27/19 11:16 Potassium 4.9 mmol/L (3.5-5.1) 01/27/19 11:16 Chloride 103 mmol/L (98-107) 01/27/19 11:16 Carbon Dioxide 23.8 mmol/L (21-32) 01/27/19 11:16 BUN 25 mg/dL (7-18) H 01/27/19 11:16 Creatinine 1.74 mg/dL (0.55-1.02) H 01/27/19 11:16 Est GFR (MDRD) Af Amer 37 (>60) L 01/27/19 11:16 Est GFR (MDRD) Non-Af 30 (>60) L 01/27/19 11:16 Glucose 193 mg/dL (65-99) H 01/27/19 11:16 Calcium 9.1 mg/dL (8.5-10.1) 01/27/19 11:16 Corrected Calcium 9.7 mg/dL (8.5-10.1) 01/27/19 11:16 Magnesium 2.0 mg/dL (1.7-2.9) 01/27/19 11:16 Total Bilirubin 0.30 mg/dL (0.2-1.0) 01/27/19 11:16 AST 17 Units/L (15-37) 01/27/19 11:16 ALT 8 Units/L (12-78) L 01/27/19 11:16 Alkaline Phosphatase 78 Units/L (46-116) 01/27/19 11:16 Creatine Kinase 119 Units/L (26-192) 01/27/19 11:16 CK-MB (CK-2) 2.0 ng/mL (0-4.0) 01/27/19 11:16 CK/CKMB % Calc 1.7 % (<4) 01/27/19 11:16 Troponin I 0.15 ng/mL (0-1.5) 01/27/19 11:16 B-Natriuretic Peptide 1210 pg/mL (0-79) H* 01/27/19 11:16 Total Protein 7.6 g/dL (6.4-8.2) 01/27/19 11:16 Albumin 3.3 g/dL (3.4-5.0) L 01/27/19 11:16 Globulin 4.3 g/dL (2.5-4.5) 01/27/19 11:16 Albumin/Globulin Ratio 0.8 Ratio (1.1-2.1) L 01/27/19 11:16 Specimen Type Catherized urine 01/27/19 11:41 Urine Color Yellow (YELLOW) 01/27/19 11:41 Urine Appearance Clear (CLEAR) 01/27/19 11:41 Urine pH 6.0 (5.0 - 8.0) 01/27/19 11:41 Ur Specific [place] 1.015 (1.000-1.030) 01/27/19 11:41 Urine Protein 3+ (NEGATIVE) 01/27/19 11:41 Urine Glucose (UA) Negative (NEGATIVE) 01/27/19 11:41 Urine Ketones Negative (NEGATIVE) 01/27/19 11:41 Urine Occult Blood 2+ (NEGATIVE) 01/27/19 11:41 Urine Nitrite Negative (NEGATIVE) 01/27/19 11:41 Urine Bilirubin Negative (NEGATIVE) 01/27/19 11:41 Urine Urobilinogen Normal (NORMAL) 01/27/19 11:41 Ur Leukocyte Esterase Negative (NEGATIVE) 01/27/19 11:41 Urine RBC 0-2 /HPF (NONE SEEN) 01/27/19 11:41 Urine WBC 0-2 /HPF (NONE SEEN) 01/27/19 11:41 Ur Squamous Epith Cells Moderate /HPF (NEGATIVE) 01/27/19 11:41 Amorphous Sediment Trace /HPF (NEGATIVE) 01/27/19 11:41 Urine Bacteria Trace /HPF (NEGATIVE) 01/27/19 11:41 Urine Mucus Moderate /HPF (NEGATIVE) 01/27/19 11:41 Ur Culture Indicated? No/not indicated 01/27/19 11:41 - Diagnosis Discharge Problem: Respiratory distress, acute, Essential hypertension, Hyperglycemia Bilateral pneumonia Qualifiers: Pneumonia type: due to unspecified organism Congestive heart failure (CHF) Qualifiers: Heart failure chronicity: unspecified Chronic kidney disease (CKD) Qualifiers: Chronic kidney disease stage: stage 3 (moderate) Qualified Code(s): N18.3 - Chronic kidney disease, stage 3 (moderate) - Discharge Plan Disposition: ADMITTED INPATIENT Condition: Stable - Follow ups/Referrals Follow ups/Referrals: GAURAV MALAVE [Primary Care Provider] - 3 days - Instructions
[2019-01-27 11:26] LABS: BASOPHILS # (AUTO) 0.1 X10^3/uL (0.0-0.1); BASOPHILS % (AUTO) 0.7 % (0.2-1.0); EOSINOPHILS # (AUTO) 0.2 x10^3/uL (0.0-0.2); EOSINOPHILS % (AUTO) 1.4 % (0.9-2.9); HEMATOCRIT 37.7 % (36.0-47.0); HEMOGLOBIN 12.3 g/dL (12.0-16.0); LYMPHOCYTES # (AUTO) 1.9 X10^3/uL (1.3-2.9); LYMPHOCYTES % (AUTO) 14.9 % (21.0-51.0); MEAN CORPUSCULAR HGB CONC 32.8 g/dL (33.0-35.0); MEAN CORPUSCULAR VOLUME 94.4 fL (80.0-100.0); MEAN PLATELET VOLUME 9.1 fL (7.4-11.0); MONOCYTES # (AUTO) 0.4 x10^3/uL (0.3-0.8); PLATELET COUNT 137 X10^3/uL (150.0-450.0); RED BLOOD COUNT 3.99 X10^6/uL (3.5-5.4); RED CELL DISTRIBUTION WIDTH 15.2 % (11.6-16.5); WHITE BLOOD COUNT 12.5 X10^3/uL (3.6-10.0)
[2019-01-27 11:29] VITALS: BMI 27.4
--- NOTE | 2019-01-27 11:34 | RAD ---
Examination: Portable AP chest History: Chest pain SOB Comparison 03/19/2017 Findings: The heart is normal in size. Hiatal hernia is observed. There are bilateral perihilar infiltrates extending into the upper lobes. There is no evidence for extrapulmonary air or large pleural effusion. Impression: Bilateral perihilar and upper lobe infiltrates consistent with pneumonia. Localized/asymmetric pulmonary edema may produce similar findings. Correlate clinically with appropriate follow-up. Reported By:
[2019-01-27 11:48] LABS: CALCIUM 9.1 mg/dL (8.5-10.1); CARBON DIOXIDE 23.8 mmol/L (21-32); CREATININE 1.74 mg/dL (0.55-1.02); TROPONIN I 0.15 ng/mL (0-1.5)
[2019-01-27] MEDS ORDERED: LEVAQUIN PREMIX IV 500 MG 500 MG/100 ML BAG IV ONE (11:49)
[2019-01-27] MEDS ORDERED: LEVAQUIN PREMIX IV 500 MG 500 MG/100 ML BAG ONE (11:50)
[2019-01-27 11:52] LABS: ALBUMIN 3.3 g/dL (3.4-5.0); CKMB % 1.7 % (<4); COR CA(FOR HYPOALB) 9.7 mg/dL (8.5-10.1); TOTAL PROTEIN 7.6 g/dL (6.4-8.2)
[2019-01-27 11:55] LABS: BILIRUBIN,URINE NEGATIVE (NEGATIVE); BLOOD/HEMOGLOBIN,URINE 2+ (NEGATIVE); GLUCOSE, URINE NEGATIVE (NEGATIVE); KETONES,URINE NEGATIVE (NEGATIVE); LEUKOCYTE ESTERASE ,URINE NEGATIVE (NEGATIVE); NITRITES,URINE NEGATIVE (NEGATIVE); PROTEIN,URINE 3+ (NEGATIVE); UROBILINOGEN,URINE NORMAL (NORMAL)
[2019-01-27 12:05] LABS: APPEARANCE,URINE CLEAR (CLEAR); COLOR,URINE YELLOW (YELLOW)
[2019-01-27 12:34] LABS: BACTERIA,URINE TRACE /HPF (NEGATIVE); RBC,URINE 0-2 /HPF (NONE SEEN); SQUAMOUS EPITHELIAL CELL,UR MODERATE /HPF (NEGATIVE)
[2019-01-27 12:35] LABS: AMORPHOUS SEDIMENT,UR TRACE /HPF (NEGATIVE); MUCUS,URINE MODERATE /HPF (NEGATIVE)
[2019-01-27] MEDS ORDERED: LOVENOX INJ 60 MG SYR SC ONE (12:51)
[2019-01-27] MEDS ORDERED: NS 1/2 1000 ML IV 1,000 ML ONE (13:27)
[2019-01-27] MEDS ORDERED: NS 1/2 1000 ML IV 1,000 ML IV SCH (14:00)
[2019-01-27] MEDS ORDERED: SALINE 3% 15 ML NEB TX NEB ONE (14:16)
[2019-01-27] MEDS: NS 1/2 1000 ML IV 1,000 ML IV SCH (14:30)
[2019-01-27] MEDS ORDERED: VALIUM INJ IVP PRN (16:51)
[2019-01-27] MEDS: DUONEB 0.5 MG/3 MG NEB SCH (17:17)
[2019-01-27] MEDS ORDERED: TYLENOL 325 MG TAB PO PRN (20:24)
[2019-01-27] MEDS: LASIX IVP SCH (20:58)
[2019-01-27] MEDS: COREG TAB 12.5 MG PO SCH (20:58)
[2019-01-27] MEDS: RESTORIL CAP 15 MG PO PRN (20:58)
[2019-01-27 21:26] LABS: CREATINE KINASE MB 7.8 ng/mL (0-4.0); TROPONIN I 1.91 ng/mL (0-1.5)
[2019-01-27] MEDS ORDERED: LOVENOX INJ 60 MG SYR ONE (22:38)
[2019-01-27] MEDS: ECOTRIN TAB 325 MG PO SCH (22:44)
[2019-01-27] MEDS: PLAVIX PO SCH (22:44)
[2019-01-27] MEDS ORDERED: LOVENOX INJ 60 MG SYR SC SCH (23:00)
[2019-01-28] MEDS: DUONEB 0.5 MG/3 MG NEB SCH ×4 (00:05→17:20)
[2019-01-28] MEDS ORDERED: ATIVAN TAB 0.5 MG PO ONE (01:08)
[2019-01-28] MEDS ORDERED: ATIVAN TAB 0.5 MG ONE (01:09)
--- NOTE | 2019-01-28 06:05 | RAD ---
HISTORY: 73-year-old female with respiratory distress. Patient with chest tightness, shortness of breath and chest pain. History of COPD. Study: Frontal view of the chest. Comparison: Chest radiograph 01/27/2019 Findings: The trachea is midline. The cardiac silhouette is stably enlarged. Significant improvement pattern of aeration with continued right basilar atelectasis, prominent perihilar markings and interstitium. Hiatal hernia. Soft tissues are unremarkable. Osseous structures are unremarkable. IMPRESSION: 1. Significant improvement pattern of aeration with right basilar atelectasis, correlate clinically for infection. 2. Cardiomegaly with findings in keeping with history of COPD. Reported By:
[2019-01-28 06:11] LABS: BASOPHILS % (AUTO) 0.1 % (0.2-1.0); HEMATOCRIT 35.7 % (36.0-47.0); HEMOGLOBIN 12.1 g/dL (12.0-16.0); LYMPHOCYTES # (AUTO) 0.9 X10^3/uL (1.3-2.9); LYMPHOCYTES % (AUTO) 10.4 % (21.0-51.0); MEAN CORPUSCULAR HEMOGLOBIN 31.8 pg (27.0-34.0); MEAN CORPUSCULAR HGB CONC 33.9 g/dL (33.0-35.0); MEAN CORPUSCULAR VOLUME 93.7 fL (80.0-100.0); MEAN PLATELET VOLUME 9.8 fL (7.4-11.0); MONOCYTES # (AUTO) 0.3 x10^3/uL (0.3-0.8); MONOCYTES % (AUTO) 3.2 % (0.0-13.0); NEUTROPHILS # (AUTO) 7.8 x10^3/uL (2.2-4.8); NEUTROPHILS % (AUTO) 86.3 % (42.0-75.0); PLATELET COUNT 119 X10^3/uL (150.0-450.0); RED BLOOD COUNT 3.81 X10^6/uL (3.5-5.4); RED CELL DISTRIBUTION WIDTH 14.8 % (11.6-16.5)
[2019-01-28 06:39] LABS: CALCIUM 8.7 mg/dL (8.5-10.1); CARBON DIOXIDE 25.4 mmol/L (21-32); CKMB % 3.9 % (<4); COR CA(FOR HYPOALB) 9.5 mg/dL (8.5-10.1); CREATININE 1.67 mg/dL (0.55-1.02); TOTAL PROTEIN 7.1 g/dL (6.4-8.2)
[2019-01-28 06:51] LABS: CREATINE KINASE MB 7.2 ng/mL (0-4.0)
[2019-01-28 06:52] LABS: TROPONIN I 2.21 ng/mL (0-1.5)
[2019-01-28 08:58] LABS: CKMB % 4.3 % (<4)
[2019-01-28] MEDS ORDERED: LOVENOX INJ 80 MG SYR SC SCH (09:00)
[2019-01-28 09:04] LABS: CREATINE KINASE MB 6.8 ng/mL (0-4.0)
[2019-01-28 09:05] LABS: TROPONIN I 1.79 ng/mL (0-1.5)
[2019-01-28] MEDS: COREG TAB 12.5 MG PO SCH ×2 (09:28→21:17)
[2019-01-28] MEDS: PLAVIX PO SCH (09:28)
[2019-01-28] MEDS: ECOTRIN TAB 325 MG PO SCH (09:28)
[2019-01-28] MEDS: CRESTOR TAB 10 MG PO SCH (09:28)
[2019-01-28] MEDS: LASIX IVP SCH ×2 (09:29→21:17)
[2019-01-28] MEDS: ZITHROMAX INJ 500 MG VIAL 500 MG in NS 250 ML IV 250 ML IV SCH (09:29)
[2019-01-28] MEDS: NORVASC TAB 5 MG PO SCH (09:46)
[2019-01-28] MEDS ORDERED: HEPARIN SODIUM INJ 5000 UNITS ONE (10:32)
[2019-01-28] MEDS ORDERED: HEPARIN SODIUM INJ 5000 UNITS IVP ONE (10:33)
[2019-01-28] MEDS: HEPARIN SODIUM IN D5W 25,000 UNITS/500 ML BAG IV PRN (11:10)
[2019-01-28] MEDS ORDERED: NS 1000 ML 1,000 ML ONE (11:11)
[2019-01-28] MEDS: ATIVAN TAB 1 MG PO SCH ×2 (12:21→21:17)
[2019-01-28] MEDS ORDERED: ATIVAN TAB 1 MG ONE (12:23)
[2019-01-28 13:00] LABS: CKMB % 3.8 % (<4)
[2019-01-28 14:56] LABS: TROPONIN I 1.57 ng/mL (0-1.5)
--- NOTE | 2019-01-28 16:42 | DR.H&P ---
H&P - History & Physical for Day of: H&P Date: 01/27/19 - Chief Complaint Chief Complaint: SOB, WHEEZING - History of Present Illness History of Present Illness: IS A 73 YEAR OLD PATIENT OF WHO PRESENTED TO THE ER WITH COMPLAINTS OF SHORTNESS OF BREATH AND WHEEZING. SHE REPORTED FEELING LIKE SOMETHING WAS STUCK IN HER THROAT. SYMPTOMS STARTED ABOUT AN HOUR PRIOR TO COMING TO THE ER. SHE REPORTED USING NEBULIZER TREATMENTS AT HOME WITHOUT IMPROVEMENT. SHE HAS A HISTORY OF [place] X 2, CVA, HTN, COPD, DIABETES, AND HYPOTHYROIDISM. ON ARRIVAL TO THE ER, VITALS WERE 98.0-108-20-78% ROOM AIR- 230/102. SHE WAS PLACED ON A NON-REBREATHER. OXYGEN SATURATIONS INCREASED TO THE 90S. LABS WERE OBTAINED. ABNORMAL LAB VALUES INCLUDE THE FOLLOWING: WBC 12.5, PLT COUNT 137, D-DIMER 1570, BUN 25, CREATININE 1.74, GLUCOSE 193, ALT 8, BNP 1210, ALBUMIN 3.3. CARDIAC ENZYMES WITHIN NORMAL LIMITS. BLOOD CULTURES OBTAINED. EKG REVEALED: SINUS TACHYCARDIA WITH HR 105. A CHEST XRAY WAS OBTAINED AND REVEALED: Bilateral perihilar and upper lobe infiltrates consistent with pneumonia. Localized/asymmetric pulmonary edema may produce similar findings. SHE WAS GIVEN SOLU-MEDROL 125MG IV X 1, LEVAQUIN 500MG IV X 1, A DUONEB X 1, AND LASIX 20MG IV X 1 DOSE. SHE REPORTED SLIGHT IMPROVEMENT IN SYMPTOMS. SHE WAS ADMITTED FOR FURTHER EVALUATION AND TREATMENT OF PNEUMONIA, CHF, AND RESPIRATORY DISTRESS. SHE WAS STARTED ON AZITHROMYCIN 500MG IV DAILY, LASIX 20MG IV BID, AND RESPIRATORY TREATMENTS. WE PLAN TO FOLLOW UP WITH AM LABS AND CHEST XRAY AND CONTINUE TO MONITOR. - Past Medical History Past Medical History: Anemia, Angina, Arthritis, Coronary Artery Disease, CVA, Depression, Gout, Hypertension, Hypothyroidism, [place], Renal Disease - Past Surgical History Surgical History: Angioplasty/Stents, Hysterectomy - Family History Family Medical History: Cancer, [place], Coronary Artery Disease - Social History Does patient currently use any type of tobacco product: No Have you used tobacco products in the last 12 months: No Type of Tobacco Use: None Does any household member use tobacco: No Alcohol Use: None Drug Use: None - Medications Home Medications: penicillin G Allergy (Verified 01/27/19 11:30) CONTINUE taking the following medications albuterol sulfate [Ventolin HFA] 2 inh INHALATION Q6H 01/27/19 [History] citalopram [Celexa] 20 mg PO DAILY 01/27/19 [History] duloxetine 60 mg PO DAILY 01/27/19 [History] esomeprazole magnesium [Nexium] 40 mg PO DAILY 01/27/19 [History] lisinopril 5 mg PO DAILY 01/27/19 [History] - Review of Systems Constitutional: denies: Fever, Chills Eyes: No Symptoms Reported ENT: No Symptoms Reported Respiratory: See HPI, Cough, Shortness of Breath, Wheezing Cardiovascular: No Symptoms Reported. denies: Chest Pain Gastrointestinal: No Symptoms Reported Genitourinary: No Symptoms Reported Musculoskeletal: No Symptoms Reported Skin: No Symptoms Reported Neurological: Weakness - Physical Exam Vital Signs: Temperature 98.8 F Pulse Rate 62 Respiratory Rate 16 Blood Pressure [Right Arm] 150/65 Blood Pressure [Left Arm] 129/63 Blood Pressure 139/63 O2 Sat by Pulse Oximetry 100 Oriented: Normal Eyes: Normal Ear: Normal Nose: Normal Throat: Normal Respiratory: Wheezes Throughout Cardiovascular: Tachycardia. negative: S3, S4, Murmur : Normal Auscultation: Bowel Sounds: Normal Palpation: Normal Tenderness: Normal Skin: Normal Musculoskeletal: Normal Psychiatric: Normal Mood Description: Calm Affect: Normal Speech Pattern: Clear - Assessment/Plan (1) Bilateral pneumonia Qualifiers: Pneumonia type: due to unspecified organism Lung location: upper lobe of lung Qualified Code(s): J18.1 - Lobar pneumonia, unspecified organism Status: Acute Plan: IV ANTIBIOTICS, RESPIRATORY TX, SUPPLEMENTAL OXYGEN, CONTINUE TO MONITOR (2) Congestive heart failure (CHF) Qualifiers: Heart failure chronicity: unspecified Status: Acute Plan: LASIX 20MG IV BID, CONTINUE TO MONITOR (3) Respiratory distress, acute Status: Acute Plan: RESPIRATORY TX, SUPPLEMENTAL OXYGEN, IV LASIX - Allergies Allergies/Adverse Reactions: Allergies Allergy/AdvReac Type Severity Reaction Status Date / Time penicillin G Allergy Verified 01/27/19 11:30
--- NOTE | 2019-01-28 18:35 | PCM.PROG ---
Progress Note - Progress Note for Day of Date of Exam: 01/28/19 - Subjective Subjective: WAS ADMITTED FOR BILATERAL PNEUMONIA. HER SECOND AND THIRD SET OF CARDIAC PROFILES REVEALED A RISE IN TROPONIN TO 1.91 AND 2.21. SHE WAS GIVEN A DOSE OF LOVENOX LAST NIGHT. TODAY, SHE IS ALERT AND ORIENTED, SITTING UP IN BED ON MORNING ROUNDS. SHE CONTINUES WITH SHORTNESS OF BREATH, BUT DENIES CHEST PAIN AT THE PRESENT TIME. SHE HAS A NON-PRODUCTIVE COUGH. ON EXAMINATION, HEART IS REGULAR IN RATE AND RHYTHM. BILATERAL LUNGS ARE NOTED WITH RHONCHI THROUGHOUT. ABDOMEN IS ROUND, SOFT, AND NON-TENDER WITH NORMAL BOWEL SOUNDS NOTED IN ALL QUADRANTS. HER VITALS THIS MORNING ARE 99.0-64-15-100%-185/73. LABS WERE OBTAINED. ABNORMAL LAB VALUES INCLUDE THE FOLLOWING: HCT 35.7, PLT COUNT 119, BUN 28, CREATININE 1.67, GLUCOSE 122, ALT 11, CK-MB 7.2, TROPONIN 2.21, BNP INCREASED FROM 1210 TO 2710, ALBUMIN 3.0. BLOOD CLLTURES PENDING. A CHEST XRAY WAS OBTAINED THIS MORNING AND REVEALED: Significant improvement pattern of aeration with right basilar atelectasis, correlate clinically for infection. Cardiomegaly with findings in keeping with history of COPD. EKGs REVEAL NO CHANGES. TODAY, WE WILL START NORVASC 5MG PO DAILY FOR HYPERTENSION AND START A HEPARIN DRIP. WE WILL REPEAT SERIAL CARDIAC ENZYMES AND EKGS. OTHERWISE, WE WILL CONTINUE LASIX, IV ANTIBIOTICS, RESPIRATORY TX, AND CURRENT PLAN OF CARE. WE PLAN TO FOLLOW UP WITH AM LABS AND CONTINUE TO MONITOR. - Past Medical Family Social History Past Med/Fam/Surg Hx: No changes since H&P Allergies: Allergies penicillin G Allergy (Verified 01/27/19 11:30) - Review of Systems ROS: No change since H&P - Vital Signs and I&O's Vital Signs: Temperature 98.8 F Pulse Rate 61 Respiratory Rate 18 Blood Pressure [Right Arm] 150/65 Blood Pressure [Left Arm] 129/63 Blood Pressure 155/68 O2 Sat by Pulse Oximetry 100 Intake and Output: Intake & Output 01/26/19 01/27/19 01/28/19 01/29/19 11:59 11:59 11:59 11:59 Intake Total 572 / 572 1217 / 1217 Output Total 1000 / 1000 Balance -428 / -428 1217 / 1217 - Physical Exam Oriented: Normal Eyes: Normal Ear: Normal Nose: Normal Throat: Normal Respiratory: Rhonchi Cardiovascular: Normal. negative: S3, S4, Murmur : Normal Auscultation: Bowel Sounds: Normal Palpation: Normal Tenderness: Normal Skin: Normal Musculoskeletal: Normal Psychiatric: Normal Mood Description: Calm Affect: Normal Speech Pattern: Clear - Laboratory and Diagnostics Result Diagrams: 01/28/19 04:01 01/28/19 04:01 Labs: Laboratory WBC 9.0 X10^3/uL (3.6-10.0) 01/28/19 04:01 RBC 3.81 X10^6/uL (3.5-5.4) 01/28/19 04:01 Hgb 12.1 g/dL (12.0-16.0) 01/28/19 04:01 Hct 35.7 % (36.0-47.0) L 01/28/19 04:01 MCV 93.7 fL (80.0-100.0) 01/28/19 04:01 MCH 31.8 pg (27.0-34.0) 01/28/19 04:01 MCHC 33.9 g/dL (33.0-35.0) 01/28/19 04:01 RDW 14.8 % (11.6-16.5) 01/28/19 04:01 Plt Count 119 X10^3/uL (150.0-450.0) L 01/28/19 04:01 MPV 9.8 fL (7.4-11.0) 01/28/19 04:01 Neut % (Auto) 86.3 % (42.0-75.0) H 01/28/19 04:01 Lymph % (Auto) 10.4 % (21.0-51.0) L 01/28/19 04:01 [place] % (Auto) 3.2 % (0.0-13.0) 01/28/19 04:01 Eos % (Auto) 0.0 % (0.9-2.9) L 01/28/19 04:01 Baso % (Auto) 0.1 % (0.2-1.0) L 01/28/19 04:01 Neut # (Auto) 7.8 x10^3/uL (2.2-4.8) H 01/28/19 04:01 Lymph # (Auto) 0.9 X10^3/uL (1.3-2.9) L 01/28/19 04:01 [place] # (Auto) 0.3 x10^3/uL (0.3-0.8) 01/28/19 04:01 Eos # (Auto) 0.0 x10^3/uL (0.0-0.2) 01/28/19 04:01 Baso # (Auto) 0.0 X10^3/uL (0.0-0.1) 01/28/19 04:01 Absolute Nucleated RBC 0.0 /100WBC 01/28/19 04:01 INR Target Range - 01/27/19 11:16 INR 0.97 (0.8-1.3) 01/27/19 11:16 APTT 184.7 SECONDS (22.9-36.5) H* 01/28/19 17:30 PTT Comment - 01/28/19 17:30 D-Dimer 1570 ng/mL (0-400) H* 01/27/19 11:16 Sodium 139 mmol/L (136-145) 01/28/19 04:01 Corrected Sodium 140 mmol/L (136-145) 01/28/19 04:01 Potassium 3.5 mmol/L (3.5-5.1) 01/28/19 04:01 Chloride 100 mmol/L (98-107) 01/28/19 04:01 Carbon Dioxide 25.4 mmol/L (21-32) 01/28/19 04:01 BUN 28 mg/dL (7-18) H 01/28/19 04:01 Creatinine 1.67 mg/dL (0.55-1.02) H 01/28/19 04:01 Est GFR (MDRD) Af Amer 38 (>60) L 01/28/19 04:01 Est GFR (MDRD) Non-Af 32 (>60) L 01/28/19 04:01 Glucose 122 mg/dL (65-99) H 01/28/19 04:01 POC Glucose (mg/dL) 162 mg/dL (65-99) H 01/28/19 16:10 Calcium 8.7 mg/dL (8.5-10.1) 01/28/19 04:01 Corrected Calcium 9.5 mg/dL (8.5-10.1) 01/28/19 04:01 Magnesium 2.0 mg/dL (1.7-2.9) 01/27/19 11:16 Total Bilirubin 0.30 mg/dL (0.2-1.0) 01/28/19 04:01 AST 25 Units/L (15-37) 01/28/19 04:01 ALT 11 Units/L (12-78) L 01/28/19 04:01 Alkaline Phosphatase 70 Units/L (46-116) 01/28/19 04:01 Creatine Kinase 151 Units/L (26-192) 01/28/19 12:00 CK-MB (CK-2) 5.7 ng/mL (0-4.0) H* 01/28/19 12:00 CK/CKMB % Calc 3.8 % (<4) 01/28/19 12:00 Troponin I 1.57 ng/mL (0-1.5) H* 01/28/19 12:00 B-Natriuretic Peptide 2710 pg/mL (0-79) H* 01/28/19 04:01 Total Protein 7.1 g/dL (6.4-8.2) 01/28/19 04:01 Albumin 3.0 g/dL (3.4-5.0) L 01/28/19 04:01 Globulin 4.1 g/dL (2.5-4.5) 01/28/19 04:01 Albumin/Globulin Ratio 0.7 Ratio (1.1-2.1) L 01/28/19 04:01 Specimen Type Catherized urine 01/27/19 11:41 Urine Color Yellow (YELLOW) 01/27/19 11:41 Urine Appearance Clear (CLEAR) 01/27/19 11:41 Urine pH 6.0 (5.0 - 8.0) 01/27/19 11:41 Ur Specific [place] 1.015 (1.000-1.030) 01/27/19 11:41 Urine Protein 3+ (NEGATIVE) 01/27/19 11:41 Urine Glucose (UA) Negative (NEGATIVE) 01/27/19 11:41 Urine Ketones Negative (NEGATIVE) 01/27/19 11:41 Urine Occult Blood 2+ (NEGATIVE) 01/27/19 11:41 Urine Nitrite Negative (NEGATIVE) 01/27/19 11:41 Urine Bilirubin Negative (NEGATIVE) 01/27/19 11:41 Urine Urobilinogen Normal (NORMAL) 01/27/19 11:41 Ur Leukocyte Esterase Negative (NEGATIVE) 01/27/19 11:41 Urine RBC 0-2 /HPF (NONE SEEN) 01/27/19 11:41 Urine WBC 0-2 /HPF (NONE SEEN) 01/27/19 11:41 Ur Squamous Epith Cells Moderate /HPF (NEGATIVE) 01/27/19 11:41 Amorphous Sediment Trace /HPF (NEGATIVE) 01/27/19 11:41 Urine Bacteria Trace /HPF (NEGATIVE) 01/27/19 11:41 Urine Mucus Moderate /HPF (NEGATIVE) 01/27/19 11:41 Ur Culture Indicated? No/not indicated 01/27/19 11:41 - Plan (1) Bilateral pneumonia Status: Acute Qualifiers: Pneumonia type: due to unspecified organism Lung location: upper lobe of lung Qualified Code(s): J18.1 - Lobar pneumonia, unspecified organism Plan: IV ANTIBIOTICS, RESPIRATORY TX, SUPPLEMENTAL OXYGEN, CONTINUE TO MONITOR (2) Congestive heart failure (CHF) Status: Acute Qualifiers: Heart failure chronicity: unspecified Plan: LASIX 20MG IV BID, CONTINUE TO MONITOR (3) Respiratory distress, acute Status: Acute Plan: RESPIRATORY TX, SUPPLEMENTAL OXYGEN, IV LASIX (4) Elevation of cardiac enzymes Status: Acute Plan: HEPARIN DRIP, MONITOR SERIAL CARDIAC ENZYMES AND EKGs, CONTINUE TO MONITOR
[2019-01-28 18:36] LABS: CKMB % 3.2 % (<4); CREATINE KINASE MB 3.9 ng/mL (0-4.0); TROPONIN I 1.21 ng/mL (0-1.5)
[2019-01-28] MEDS: NS 1/2 1000 ML IV 1,000 ML IV SCH (19:00)
[2019-01-28] MEDS: RESTORIL CAP 15 MG PO PRN (22:43)
[2019-01-29] MEDS: DUONEB 0.5 MG/3 MG NEB SCH ×4 (00:45→17:14)
[2019-01-29] MEDS: NS 1/2 1000 ML IV 1,000 ML IV SCH ×2 (05:37→20:04)
--- NOTE | 2019-01-29 06:12 | RAD ---
HISTORY: Chest pain, shortness of breath, respiratory distress Study: Chest AP portable Comparison: 01/29/2019, 01/28/2019 Findings: The heart is enlarged. The luis miguel are normal. The aorta is calcified. The lungs are free of acute alveolar infiltrates. Improving aeration in the right lower lobe. Minimal subsegmental atelectasis right lower lobe. There is a hiatal hernia present. IMPRESSION: Lungs free of acute infiltrates Minimal residual subsegmental atelectasis right lung base Hiatal hernia Reported By:
[2019-01-29 07:17] LABS: BASOPHILS % (AUTO) 0.6 % (0.2-1.0); EOSINOPHILS % (AUTO) 0.3 % (0.9-2.9); HEMATOCRIT 33.5 % (36.0-47.0); HEMOGLOBIN 11.3 g/dL (12.0-16.0); LYMPHOCYTES # (AUTO) 1.4 X10^3/uL (1.3-2.9); LYMPHOCYTES % (AUTO) 15.9 % (21.0-51.0); MEAN CORPUSCULAR HEMOGLOBIN 31.5 pg (27.0-34.0); MEAN CORPUSCULAR HGB CONC 33.8 g/dL (33.0-35.0); MONOCYTES # (AUTO) 0.6 x10^3/uL (0.3-0.8); MONOCYTES % (AUTO) 6.9 % (0.0-13.0); NEUTROPHILS # (AUTO) 6.6 x10^3/uL (2.2-4.8); NEUTROPHILS % (AUTO) 76.3 % (42.0-75.0); PLATELET COUNT 110 X10^3/uL (150.0-450.0); RED BLOOD COUNT 3.61 X10^6/uL (3.5-5.4); RED CELL DISTRIBUTION WIDTH 14.8 % (11.6-16.5); WHITE BLOOD COUNT 8.7 X10^3/uL (3.6-10.0)
[2019-01-29 07:27] LABS: ALBUMIN 2.7 g/dL (3.4-5.0); CALCIUM 8.1 mg/dL (8.5-10.1); CARBON DIOXIDE 28.9 mmol/L (21-32); COR CA(FOR HYPOALB) 9.1 mg/dL (8.5-10.1); CREATININE 1.64 mg/dL (0.55-1.02); TOTAL PROTEIN 6.2 g/dL (6.4-8.2)
[2019-01-29] MEDS ORDERED: POTASSIUM CHLORIDE LIQ 20 MEQ UDC PO PRN (08:16)
[2019-01-29] MEDS ORDERED: K-RIDER 10 MEQ/NS 100 ML 10 MEQ/100 ML BAG IV PRN (08:16)
[2019-01-29] MEDS ORDERED: MICRO K EXTEN CAP 10 MEQ PO PRN (08:16)
[2019-01-29] MEDS ORDERED: POTASSIUM CHL 60 MEQ/NS 0.45% 500 ML IV PRN (08:16)
[2019-01-29] MEDS ORDERED: POTASSIUM CHL 40 MEQ/NS 0.45% 500 ML IV PRN (08:16)
[2019-01-29] MEDS ORDERED: KLOR-CON PO PRN (08:16)
[2019-01-29] MEDS ORDERED: K-DUR TAB 20 MEQ ONE (08:42)
[2019-01-29] MEDS: ZITHROMAX INJ 500 MG VIAL 500 MG in NS 250 ML IV 250 ML IV SCH (08:48)
[2019-01-29] MEDS: CRESTOR TAB 10 MG PO SCH (08:50)
[2019-01-29] MEDS: ATIVAN TAB 1 MG PO SCH ×2 (08:51→20:04)
[2019-01-29] MEDS: NORVASC TAB 5 MG PO SCH (08:52)
[2019-01-29] MEDS ORDERED: ZITHROMAX TAB 250 MG PO SCH (09:00)
[2019-01-29] MEDS: PLAVIX PO SCH (09:04)
[2019-01-29] MEDS: LASIX IVP SCH ×2 (09:05→20:03)
[2019-01-29] MEDS: K-DUR TAB 20 MEQ PO PRN (09:06)
[2019-01-29] MEDS: MAG-OX TAB PO SCH (09:58)
[2019-01-29] MEDS: COREG TAB 6.25 MG PO SCH ×2 (09:58→20:04)
[2019-01-29 10:03] LABS: CREATINE KINASE MB 5.7 ng/mL (0-4.0)
--- NOTE | 2019-01-29 12:25 | PCM.PROG ---
Progress Note - Progress Note for Day of Date of Exam: 01/29/19 - Subjective Subjective: WAS ADMITTED FOR BILATERAL PNEUMONIA. HER SECOND AND THIRD SET OF CARDIAC PROFILES REVEALED A RISE IN TROPONIN TO 1.91 AND 2.21. PT IS CURRENTLY ON IV HEPARIN, DENIES CHEST PAIN THIS AM, TROPONIN 1.21 ON 01/28 WILL REPEAT CE THIS AM. PT IS ON STATIN AND BB, SUPPLEMENTAL O2. CXR CLEAR OF INFILTRATES. PT HAD NOT OBTAINED SPUTUM CUTLURE, ENCOURAGED REPSIRATORY TOILETING. PT REPORTS LAST CATH AT [facility] WITH STENT PLACEMENT X [address] ROSS. - Past Medical Family Social History Past Med/Fam/Surg Hx: No changes since H&P Allergies: Allergies penicillin G Allergy (Verified 01/27/19 11:30) - Review of Systems ROS: No change since H&P - Vital Signs and I&O's Vital Signs: Temperature 97.5 F Pulse Rate 59 Respiratory Rate 15 Blood Pressure [Right Arm] 150/65 Blood Pressure [Left Arm] 129/63 Blood Pressure 151/63 O2 Sat by Pulse Oximetry 100 Intake and Output: Intake & Output 01/27/19 01/28/19 01/29/19 01/30/19 11:59 11:59 11:59 11:59 Intake Total 572 / 572 2444 / 2444 Output Total 1000 / 1000 1100 / 1100 Balance -428 / -428 1344 / 1344 - Physical Exam Oriented: Normal Eyes: Normal Ear: Normal Nose: Normal Throat: Normal Respiratory: Diminished Cardiovascular: Normal, Murmur : Normal Auscultation: Bowel Sounds: Normal Tenderness: Normal Skin: Normal Musculoskeletal: Back:Lumbar Psychiatric: Normal Mood Description: Calm Affect: Normal Speech Pattern: Clear, Appropriate - Laboratory and Diagnostics Result Diagrams: 01/29/19 07:05 01/29/19 07:05 Labs: 01/27/19 11:16 Blood Blood Culture - Preliminary 01/27/19 11:09 Blood Blood Culture - Preliminary Laboratory WBC 8.7 X10^3/uL (3.6-10.0) 01/29/19 07:05 RBC 3.61 X10^6/uL (3.5-5.4) 01/29/19 07:05 Hgb 11.3 g/dL (12.0-16.0) L 01/29/19 07:05 Hct 33.5 % (36.0-47.0) L 01/29/19 07:05 MCV 93.0 fL (80.0-100.0) 01/29/19 07:05 MCH 31.5 pg (27.0-34.0) 01/29/19 07:05 MCHC 33.8 g/dL (33.0-35.0) 01/29/19 07:05 RDW 14.8 % (11.6-16.5) 01/29/19 07:05 Plt Count 110 X10^3/uL (150.0-450.0) L 01/29/19 07:05 MPV 10.0 fL (7.4-11.0) 01/29/19 07:05 Neut % (Auto) 76.3 % (42.0-75.0) H 01/29/19 07:05 Lymph % (Auto) 15.9 % (21.0-51.0) L 01/29/19 07:05 Alpine % (Auto) 6.9 % (0.0-13.0) 01/29/19 07:05 Eos % (Auto) 0.3 % (0.9-2.9) L 01/29/19 07:05 Baso % (Auto) 0.6 % (0.2-1.0) 01/29/19 07:05 Neut # (Auto) 6.6 x10^3/uL (2.2-4.8) H 01/29/19 07:05 Lymph # (Auto) 1.4 X10^3/uL (1.3-2.9) 01/29/19 07:05 Alpine # (Auto) 0.6 x10^3/uL (0.3-0.8) 01/29/19 07:05 Eos # (Auto) 0.0 x10^3/uL (0.0-0.2) 01/29/19 07:05 Baso # (Auto) 0.0 X10^3/uL (0.0-0.1) 01/29/19 07:05 Absolute Nucleated RBC 0.0 /100WBC 01/29/19 07:05 INR Target Range - 01/27/19 11:16 INR 0.97 (0.8-1.3) 01/27/19 11:16 APTT 63.1 SECONDS (22.9-36.5) H 01/29/19 07:05 PTT Comment - 01/29/19 07:05 D-Dimer 1570 ng/mL (0-400) H* 01/27/19 11:16 Sodium 139 mmol/L (136-145) 01/29/19 07:05 Corrected Sodium 140 mmol/L (136-145) 01/29/19 07:05 Potassium 3.5 mmol/L (3.5-5.1) 01/29/19 07:05 Chloride 104 mmol/L (98-107) 01/29/19 07:05 Carbon Dioxide 28.9 mmol/L (21-32) 01/29/19 07:05 BUN 34 mg/dL (7-18) H 01/29/19 07:05 Creatinine 1.64 mg/dL (0.55-1.02) H 01/29/19 07:05 Est GFR (MDRD) Af Amer 39 (>60) L 01/29/19 07:05 Est GFR (MDRD) Non-Af 32 (>60) L 01/29/19 07:05 Glucose 122 mg/dL (65-99) H 01/29/19 07:05 POC Glucose (mg/dL) 142 mg/dL (65-99) H 01/29/19 11:18 Calcium 8.1 mg/dL (8.5-10.1) L 01/29/19 07:05 Corrected Calcium 9.1 mg/dL (8.5-10.1) 01/29/19 07:05 Magnesium 1.9 mg/dL (1.7-2.9) 01/29/19 07:05 Total Bilirubin 0.20 mg/dL (0.2-1.0) 01/29/19 07:05 AST 23 Units/L (15-37) 01/29/19 07:05 ALT 7 Units/L (12-78) L 01/29/19 07:05 Alkaline Phosphatase 57 Units/L (46-116) 01/29/19 07:05 Creatine Kinase 123 Units/L (26-192) 01/28/19 17:30 CK-MB (CK-2) 3.9 ng/mL (0-4.0) 01/28/19 17:30 CK/CKMB % Calc 3.2 % (<4) 01/28/19 17:30 Troponin I 1.21 ng/mL (0-1.5) 01/28/19 17:30 B-Natriuretic Peptide 2710 pg/mL (0-79) H* 01/28/19 04:01 Total Protein 6.2 g/dL (6.4-8.2) L 01/29/19 07:05 Albumin 2.7 g/dL (3.4-5.0) L 01/29/19 07:05 Globulin 3.5 g/dL (2.5-4.5) 01/29/19 07:05 Albumin/Globulin Ratio 0.8 Ratio (1.1-2.1) L 01/29/19 07:05 Specimen Type Catherized urine 01/27/19 11:41 Urine Color Yellow (YELLOW) 01/27/19 11:41 Urine Appearance Clear (CLEAR) 01/27/19 11:41 Urine pH 6.0 (5.0 - 8.0) 01/27/19 11:41 Ur Specific Orrum 1.015 (1.000-1.030) 01/27/19 11:41 Urine Protein 3+ (NEGATIVE) 01/27/19 11:41 Urine Glucose (UA) Negative (NEGATIVE) 01/27/19 11:41 Urine Ketones Negative (NEGATIVE) 01/27/19 11:41 Urine Occult Blood 2+ (NEGATIVE) 01/27/19 11:41 Urine Nitrite Negative (NEGATIVE) 01/27/19 11:41 Urine Bilirubin Negative (NEGATIVE) 01/27/19 11:41 Urine Urobilinogen Normal (NORMAL) 01/27/19 11:41 Ur Leukocyte Esterase Negative (NEGATIVE) 01/27/19 11:41 Urine RBC 0-2 /HPF (NONE SEEN) 01/27/19 11:41 Urine WBC 0-2 /HPF (NONE SEEN) 01/27/19 11:41 Ur Squamous Epith Cells Moderate /HPF (NEGATIVE) 01/27/19 11:41 Amorphous Sediment Trace /HPF (NEGATIVE) 01/27/19 11:41 Urine Bacteria Trace /HPF (NEGATIVE) 01/27/19 11:41 Urine Mucus Moderate /HPF (NEGATIVE) 01/27/19 11:41 Ur Culture Indicated? No/not indicated 05/04/19 11:41 - Plan (1) Congestive heart failure (CHF) Status: Acute Qualifiers: Heart failure chronicity: unspecified Plan: LASIX 20MG IV BID, CONTINUE TO MONITOR (2) Bilateral pneumonia Status: Acute Qualifiers: Pneumonia type: due to unspecified organism Lung location: upper lobe of lung Qualified Code(s): J18.1 - Lobar pneumonia, unspecified organism Plan: IV ANTIBIOTICS, RESPIRATORY TX, SUPPLEMENTAL OXYGEN, CONTINUE TO MONITOR (3) Respiratory distress, acute Status: Acute Plan: RESPIRATORY TX, SUPPLEMENTAL OXYGEN, IV LASIX (4) Essential hypertension Status: Acute (5) Elevation of cardiac enzymes Status: Acute Plan: HEPARIN DRIP, MONITOR SERIAL CARDIAC ENZYMES AND EKGs, CONTINUE TO MONITOR. PT IS ON BB, SUPPLEMENTAL O2 (6) Chronic kidney disease (CKD) Status: Acute Qualifiers: Chronic kidney disease stage: stage 3 (moderate) Qualified Code(s): N18.3 - Chronic kidney disease, stage 3 (moderate) (7) CAD (coronary artery disease) Status: Chronic (8) Diabetes mellitus Status: Chronic
[2019-01-29 13:09] LABS: CKMB % 2.9 % (<4); TROPONIN I 0.62 ng/mL (0-1.5)
[2019-01-29] MEDS: HumuLIN R SC PRN (16:08)
[2019-01-29] MEDS: HEPARIN SODIUM IN D5W 25,000 UNITS/500 ML BAG IV PRN (20:05)
[2019-01-29] MEDS: RESTORIL CAP 15 MG PO PRN (21:11)
[2019-01-30] MEDS: DUONEB 0.5 MG/3 MG NEB SCH ×5 (00:42→18:43)
[2019-01-30 03:15] LABS: BASOPHILS % (AUTO) 0.6 % (0.2-1.0); EOSINOPHILS % (AUTO) 0.7 % (0.9-2.9); HEMATOCRIT 33.2 % (36.0-47.0); HEMOGLOBIN 11.1 g/dL (12.0-16.0); LYMPHOCYTES # (AUTO) 1.5 X10^3/uL (1.3-2.9); LYMPHOCYTES % (AUTO) 21.4 % (21.0-51.0); MEAN CORPUSCULAR HEMOGLOBIN 31.1 pg (27.0-34.0); MEAN CORPUSCULAR HGB CONC 33.4 g/dL (33.0-35.0); MEAN PLATELET VOLUME 9.7 fL (7.4-11.0); MONOCYTES # (AUTO) 0.5 x10^3/uL (0.3-0.8); MONOCYTES % (AUTO) 7.4 % (0.0-13.0); NEUTROPHILS # (AUTO) 4.8 x10^3/uL (2.2-4.8); NEUTROPHILS % (AUTO) 69.9 % (42.0-75.0); PLATELET COUNT 105 X10^3/uL (150.0-450.0); RED BLOOD COUNT 3.56 X10^6/uL (3.5-5.4); RED CELL DISTRIBUTION WIDTH 15.2 % (11.6-16.5); WHITE BLOOD COUNT 6.9 X10^3/uL (3.6-10.0)
[2019-01-30 03:35] LABS: ALBUMIN 2.7 g/dL (3.4-5.0); CARBON DIOXIDE 32.2 mmol/L (21-32); CKMB % 1.5 % (<4); CREATINE KINASE MB 1.4 ng/mL (0-4.0); CREATININE 1.42 mg/dL (0.55-1.02); MAGNESIUM 1.8 mg/dL (1.7-2.9); TOTAL PROTEIN 6.1 g/dL (6.4-8.2); TROPONIN I 0.49 ng/mL (0-1.5)
--- NOTE | 2019-01-30 06:10 | RAD ---
HISTORY: Shortness of breath Study: Chest AP portable Comparison: None Findings: The heart is mildly enlarged. The aorta is calcified. The luis miguel are normal. No definite congestive heart failure is noted. No definite acute alveolar infiltrates are identified. No definite pleural effusions are identified. There appears to be a large hiatal hernia present. IMPRESSION: No acute infiltrates Mild cardiomegaly without congestive heart failure Hiatal hernia Reported By:
[2019-01-30] MEDS: LASIX IVP SCH (08:38)
[2019-01-30] MEDS: MAG-OX TAB PO SCH (08:39)
[2019-01-30] MEDS: NORVASC TAB 5 MG PO SCH (08:39)
[2019-01-30] MEDS: CRESTOR TAB 10 MG PO SCH (08:39)
[2019-01-30] MEDS: PLAVIX PO SCH (08:39)
[2019-01-30] MEDS: K-DUR TAB 20 MEQ PO PRN (08:39)
[2019-01-30] MEDS: ATIVAN TAB 1 MG PO SCH (08:40)
[2019-01-30] MEDS: COREG TAB 6.25 MG PO SCH (08:40)
[2019-01-30] MEDS: NS 1/2 1000 ML IV 1,000 ML IV SCH (08:40)
[2019-01-30] MEDS ORDERED: COLACE CAP 100 MG PO SCH (09:00)
[2019-01-30] MEDS ORDERED: ZESTRIL TAB 5 MG PO SCH (09:15)
[2019-01-30] MEDS: HumuLIN R SC PRN ×2 (11:11→16:03)
[2019-01-30 18:02] VITALS: BP 124/56
[2019-01-31] MEDS ORDERED: LASIX IVP SCH (09:00)
== END 2019-01-30 18:40 | disposition short-term general hospital (02) | DRG 194 ==
LOC: ER 11:07 → ICU 12:59
PROVIDERS: ADMIT Internal Medicine; ATTEND Internal Medicine
DX: N18.3 Chronic kidney disease, stage 3 (moderate); E11.65 Type 2 diabetes mellitus with hyperglycemia; R06.03 Acute respiratory distress; I13.0 Hypertensive heart and chronic kidney disease with heart failure and stage 1 through stage 4 chronic kidney disease, or unspecified chronic kidney disease; R94.30 Abnormal result of cardiovascular function study, unspecified; I50.9 Heart failure, unspecified; E03.8 Other specified hypothyroidism; J18.8 Other pneumonia, unspecified organism; J44.9 Chronic obstructive pulmonary disease, unspecified
CPT/HCPCS: 36415; 51702; 71010; 71045; 80053; 81001; 82550; 82553; 83735; 83880; 84484; 85025; 85378; 85610; 85730; 87040; 93005; 94640; 96365; 96374; 96375; 99284; A4222; J0456; J1644; J1650; J1815; J1940; J1956; J3490; J7030; J7050; J7620